=== PATIENT | female | born 1965 | race Caucasian/White ===

== ENCOUNTER 2020-10-05 23:17 | Emergency (ER) | payer BC ==
[~2020-10-05] VITALS: Ht 172.7 cm; Wt 68.9 kg
--- NOTE | 2020-10-06 00:27 | NUR ---
PATIENT WAS MSE BY DR CORRAL IN ROOM 02A.
[2020-10-06] MEDS ORDERED: CEphaleXIN 500 MG CAPSULE PO ONE (00:30)
[2020-10-06] MEDS ORDERED: TDAP DIPH,PERTUSS,TET VAC/PF 0.5 ML DISP.SYRIN IM ONE ×2 (00:30→01:03)
[2020-10-06] MEDS ORDERED: SODIUM BICARBONATE 4.2 % (NEUT) 5 ML VIAL TP ONE (00:30)
[2020-10-06] MEDS ORDERED: LIDOCAINE 1%-EPI 1:100,000 20 ML VIAL MC ONE (00:30)
[2020-10-06] MEDS ORDERED: LIDOCAINE HCL 1% 20 ML VIAL ONE (01:02)
[2020-10-06] MEDS ORDERED: CEphaleXIN 500 MG CAPSULE ONE (01:02)
[2020-10-06] MEDS ORDERED: SODIUM BICARBONATE 4.2 % (NEUT) 5 ML VIAL ONE (01:03)
[2020-10-06] MEDS ORDERED: CEPH500C2 PO (01:17)
[2020-10-06 01:55] VITALS: BP 129/77
--- NOTE | 2020-10-06 01:56 | NUR ---
Patient discharged to home in stable condition. Written and verbal after care instructions given. Patient verbalizes understanding of instructions. Stressed follow up or return to ER for worsening s/s.
== END 2020-10-06 01:56 | disposition home or self-care (01) ==
LOC: ER 23:20
DX: S61.012A Laceration without foreign body of left thumb without damage to nail, initial encounter (principal); W25.XXXA Contact with sharp glass, initial encounter; Y93.G1 Activity, food preparation and clean up; Y92.89 Other specified places as the place of occurrence of the external cause
CPT/HCPCS: 12001; 73140; 90471; 90715; 99283; J3490; A4217